=== PATIENT | male | born 1995 | race Hispanic/Latino ===

== ENCOUNTER 2020-05-17 17:31 | Emergency (ER) | payer SELFPAY ==
[~2020-05-17 17:31] MED LIST: Iopamidol-370 76% 500 ML 1 ML ONE
[2020-05-17] MEDS ORDERED: Fentanyl 100 MCG/2 ML VIAL ONE (17:38)
[2020-05-17] MEDS ORDERED: Boostrix 0.5 ML VIAL ONE (17:38)
[2020-05-17 17:43] LABS: Actual Bicarbonate (HCO3a) 16.7 mEq/L (22-28); Analyzer IN Cardio ER; Base Excess (BEa) -9.1 mEq/L (-2.0 to +3.0); CO2 Tension 35.8 mmHg (35.0-45.0); Calcium, Ionized (arterial) 0.99 mmol/L (1.12-1.30); Carboxyhemoglobin (COHb) 0.1 gm% (0.0-3.0); Hemoglobin (Hb) 10.3 g/dL (14.0-18.0); Potassium - ABG Lab 2.84 mmol/L (3.70-5.30); pH, Arterial 7.29 (7.35-7.45)
[2020-05-17] MEDS ORDERED: fentaNYL Citrate/PF 2,000 MCG in Sodium Chloride 0.9% 60 ML IV SCH (17:45)
[2020-05-17 17:51] LABS: Hemoglobin 9.5 g/dL (14.0-18.0); Mean Corpuscular HGB CONC 32.7 g/dL (32.0-36.0); Mean Corpuscular Hemoglobin 31.1 pg (27.0-31.0); Mean Corpuscular Volume 95.2 fL (78.0-98.0); Mean Platelet Volume 7.5 fL (7.4-10.4); Platelet Count 224 thou/uL (130-400); RBC Distribution Width 11.5 % (11.5-14.5); Red Blood Cell (RBC) Count 3.06 mill/uL (4.70-6.10); White Blood Cell (WBC) Count 27.1 thou/uL (4.8-10.8)
[2020-05-17] MEDS ORDERED: Propofol 1,000 MG/100 ML VIAL IV ONE (17:53)
[2020-05-17 17:57] LABS: INR-International Normal Ratio 1.5; PTT 31.8 sec (22.9-36.1); Prothrombin Time 17.8 sec (12.0-14.7)
[2020-05-17 18:03] LABS: Band 24 % (5-11); Lymphocytes 12 % (21-51); MDiff Complete? YES; Metamyelocyte 4 % (0-0); Monocytes 3 % (0-10); Neutrophil 57 % (42-75); Platelet Morphology Comment Appears Adequate; Polychromasia SLIGHT = 2-3 cells (100X) (0-2/hpf)
[2020-05-17 18:04] LABS: O2 Tension (PaO2), arterial 527.8 mmHg (80.0-100.0); Puncture Site RRA
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
[2020-05-17 18:14] LABS: ALT (SGPT) 226 U/L (8-55); AST (SGOT) 355 U/L (5-34); Albumin 2.4 g/dL (3.5-5.0); Alcohol Less than 10 mg/dL (Less than 10); Alkaline Phosphatase 53 U/L (40-110); Anion Gap 10 mmol/L (10-20); BUN (Urea Nitrogen) 8 mg/dL (8.9-20.6); Bilirubin, Total 0.3 mg/dL (0.2-1.2); Calc. Creatinine Clearance 0 mL/min (70-130); Carbon Dioxide 19 mmol/L (22-29); Chloride 114 mmol/L (98-107); Estimated GFR-MDRD Greater than 90; Globulin 1.7 g/dL (2.4-3.5); Glucose 188 mg/dL (70-105); Lipase 74 U/L (8-78); Protein, Total 4.1 g/dL (6.0-8.3); Salicylate Less than 8.0 mg/dL (15.0-30.0); Sodium 140 mmol/L (136-145)
[2020-05-17 18:17] LABS: Potassium 2.8 mmol/L (3.5-5.1)
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
[2020-05-17 18:23] LABS: Amphetamine Not Detected (NotDetected); Barbiturates Screen Not Detected (NotDetected); Benzodiazepine Screen Not Detected (NotDetected); Cocaine Metabolite Screen Not Detected (NotDetected); Medtox Control Line Valid? VALID (VALID); Medtox Reader # READER 1; Methadone Not Detected (NotDetected); Methamphetamine Not Detected (NotDetected); Opiate Screen Not Detected (NotDetected); Oxycodone Screen Not Detected (NotDetected); Phencyclidine (PCP) Not Detected (NotDetected); THC/Cannabinoid Screen Detected (NotDetected); Tricyclic Screen Not Detected (NotDetected)
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
[2020-05-17 18:28] LABS: Bilirubin Negative (Negative); Blood, Urine 3+ (Negative); Clarity Clear (Clear); Glucose, Urine (Dipstick) 300 mg/dL (Negative); Ketone, Urine Negative (Negative); Leukocyte Negative Leu/uL (Negative); Nitrite Negative (Negative); Protein, Urine (Dipstick) 300 mg/dL (Neg-Trace); RBC/HPF Greater than 50 HPF (0-3); Squamous Epithelial 0-3 HPF (0-3); Urobilinogen Normal mg/dL (Less than 2)
[2020-05-17 18:36] LABS: Bacteria/HPF None Seen HPF (None Seen); Renal Epithelial 0-3 HPF (None Seen); Transitional Epithelial 0-3 HPF (None Seen)
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
[2020-05-17 18:51] LABS: Phosphorus 3.4 mg/dL (2.3-4.7)
[2020-05-17 18:53] LABS: Magnesium 1.6 mg/dL (1.6-2.6)
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
--- NOTE | 2020-05-17 20:11 | RAD ---
LEFT FEMUR FRONTAL AND LATERAL RADIOGRAPH: 05/17/20 HISTORY: Injury, trauma, pain. FINDINGS: There is a comminuted fracture of the proximal left femur with multiple displaced butterfly fragment. The distal fracture fragment is displaced medially and demonstrates medial angulation. There is wide natalia of the pubic symphysis and widening of the left sacroiliac joint consistent with unstable pelvic injury, better assessed on the pelvic CT performed 05/17/20. IMPRESSION: Marked comminuted displaced and angulated proximal left femur fracture. Abnormal widening of the pubi c symphysis and left sacroiliac joint. POS: SANDRA
--- NOTE | 2020-05-17 20:14 | RAD ---
RIGHT ANKLE THREE VIEWS: 05/17/20 COMPARISON: None. HISTORY: Injury, pain. FINDINGS: There is prominent soft tissue irregularity suggesting a significant laceration medially just distal to the tip of the medial malleolus. Associated with this laceration are numerous punctate densities w hich likely represent radiopaque foreign bodies. Tiny chip fracture fragments cannot be excluded. The talar dome and ankle mortise appears otherwise unremarkable. No displaced fracture seen. IMPRESSION: Evidence of medial laceration with associated radiopaque foreign body suggesting multiple foreign bod ies medially as above. POS: SANDRA
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
== END 2020-05-17 20:50 | disposition short-term general hospital (02) ==
LOC: ERS 17:31 → EDBD 17:31 → ERS 20:50
DX: T21.23XA Burn of second degree of upper back, initial encounter (principal); T21.25XA Burn of second degree of buttock, initial encounter; T24.212A Burn of second degree of left thigh, initial encounter; T24.211A Burn of second degree of right thigh, initial encounter; T31.22 Burns involving 20-29% of body surface with 20-29% third degree burns; S02.2XXA Fracture of nasal bones, initial encounter for closed fracture; S72.352A Displaced comminuted fracture of shaft of left femur, initial encounter for closed fracture; S82.891A Other fracture of right lower leg, initial encounter for closed fracture; S90.512A Abrasion, left ankle, initial encounter; S80.212A Abrasion, left knee, initial encounter; S27.322A Contusion of lung, bilateral, initial encounter; V29.9XXA Motorcycle rider (driver) (passenger) injured in unspecified traffic accident, initial encounter
CPT/HCPCS: 31500; 36415; 36430; 51702; 70450; 71045; 71260; 72125; 72170; 74177; 80053; 80306; 80307; 81003; 81015; 82550; 82805; 83690; 83735; 84100; 85025; 85610; 85730; 86850; 86900; 86901; 90471; 90715; 93005; 94002; 94760; 96365; 96366; 96367; 96368; 96376; 99292; G0390; J0690; J2704; J3010; P9016; Q9967